=== PATIENT | male | born 1930 | race Caucasian/White ===

== ENCOUNTER 2019-02-08 12:25 | Inpatient (IN) | payer MEDICARE, BC ==
[2019-02-08] MEDS ORDERED: CEFTRIAXONE 1 GM PDS ONE (14:47)
[2019-02-08] MEDS ORDERED: CEFAZOLIN SODIUM 1 GM PDS ONE ×2 (14:49→21:00)
[2019-02-08] MEDS: FUROSEMIDE 20mg SOL IV SCH ×2 (14:57→18:59)
[2019-02-08] MEDS: CEFAZOLIN SODIUM 1 GM PDS 1 GM in SODIUM CHLORIDE 0.9% 50 ML 50 ML IV SCH ×2 (14:59→21:17)
[2019-02-08] MEDS ORDERED: ACETAMINOPHEN 500 MG 500 MG TAB PO PRN (17:33)
[2019-02-08] MEDS ORDERED: ALBUTEROL HFA 60 PUFF/INHALER INH PRN (17:33)
[2019-02-08] MEDS: ALBUTEROL/IPRATROPIUM 1 VIAL SOL INH PRN (18:50)
[2019-02-08] MEDS ORDERED: SODIUM CHLORIDE 0.9% 50 ML 50 ML IV ONE (21:01)
[2019-02-08] MEDS: WARFARIN SODIUM 2.5 MG TAB PO SCH (21:13)
[2019-02-08] MEDS: CARVEDILOL 12.5 MG TAB PO SCH (21:17)
[2019-02-09] MEDS ORDERED: CEFAZOLIN SODIUM 1 GM PDS ONE ×3 (04:28→16:09)
[2019-02-09] MEDS ORDERED: SODIUM CHLORIDE 0.9% 50 ML 50 ML IV ONE ×3 (04:28→16:10)
[2019-02-09] MEDS: CEFAZOLIN SODIUM 1 GM PDS 1 GM in SODIUM CHLORIDE 0.9% 50 ML 50 ML IV SCH ×3 (05:50→20:50)
[2019-02-09 07:17] LABS: CALCIUM 8.4 mg/dl (8.5-10.1); CREATININE 1.08 mg/dl (0.80-1.30)
[2019-02-09 07:20] LABS: BASOPHILS % (AUTO) 1 % (0-3); EOSINOPHILS % (AUTO) 3 % (0-9); HEMATOCRIT 47 % (39-53); HEMOGLOBIN 14.1 gm/dl (13.5-17.7); LYMPHOCYTES % (AUTO) 32.6 % (10-50); MEAN CORPUSCULAR HEMOGLOBIN 28.6 pg (27.0-32.0); MEAN CORPUSCULAR HGB CONC 29.9 gm/dl (32.0-36.0); MEAN CORPUSCULAR VOLUME 96 fL (80-100); MONOCYTES % (AUTO) 11.2 % (0-12); NEUTROPHILS % (AUTO) 52.1 % (37-80)
[2019-02-09 07:30] LABS: CARBON DIOXIDE 33.7 mEq/L (21-32)
[2019-02-09 07:35] LABS: INR 2.36 (0.87-1.13)
[2019-02-09] MEDS: FUROSEMIDE 20mg SOL IV SCH ×2 (08:01→12:07)
[2019-02-09] MEDS: SODIUM CHLORIDE 0.9% FLUSH 10 ML SOL IV PRN ×2 (08:03→13:34)
[2019-02-09] MEDS: ALBUTEROL/IPRATROPIUM 1 VIAL SOL INH PRN (08:20)
[2019-02-09] MEDS: CARVEDILOL 12.5 MG TAB PO SCH ×2 (08:31→20:10)
[2019-02-09] MEDS: LISINOPRIL 5 MG TAB PO SCH (08:31)
[2019-02-09] MEDS ORDERED: FLUTICASONE/SALMETEROL 250/50 1 PUFF DSK INH PRN (09:00)
[2019-02-09] MEDS: PREDNISONE 20 MG TAB PO SCH (10:17)
[2019-02-09] MEDS: ALBUTEROL/IPRATROPIUM 1 VIAL SOL INH SCH ×2 (12:06→18:20)
[2019-02-09] MEDS: WARFARIN SODIUM 2.5 MG TAB PO SCH (20:10)
[2019-02-10] MEDS: ALBUTEROL/IPRATROPIUM 1 VIAL SOL INH SCH ×4 (00:15→18:07)
[2019-02-10] MEDS ORDERED: CEFAZOLIN SODIUM 1 GM PDS ONE ×3 (06:00→21:23)
[2019-02-10] MEDS ORDERED: SODIUM CHLORIDE 0.9% 50 ML 50 ML IV ONE ×3 (06:01→21:23)
[2019-02-10] MEDS: CEFAZOLIN SODIUM 1 GM PDS 1 GM in SODIUM CHLORIDE 0.9% 50 ML 50 ML IV SCH ×3 (06:09→21:20)
[2019-02-10 07:07] LABS: CALCIUM 8.4 mg/dl (8.5-10.1); CREATININE 1.01 mg/dl (0.80-1.30)
[2019-02-10 07:12] LABS: CARBON DIOXIDE 34.1 mEq/L (21-32)
[2019-02-10 07:21] LABS: BASOPHILS % (AUTO) 1 % (0-3); EOSINOPHILS % (AUTO) 0 % (0-9); HEMATOCRIT 46 % (39-53); HEMOGLOBIN 13.9 gm/dl (13.5-17.7); LYMPHOCYTES % (AUTO) 22.7 % (10-50); MEAN CORPUSCULAR HEMOGLOBIN 28.8 pg (27.0-32.0); MEAN CORPUSCULAR HGB CONC 30.3 gm/dl (32.0-36.0); MEAN CORPUSCULAR VOLUME 95 fL (80-100); MONOCYTES % (AUTO) 9.4 % (0-12)
[2019-02-10 07:35] LABS: INR 2.41 (0.87-1.13)
[2019-02-10] MEDS: FUROSEMIDE 20mg SOL IV SCH ×2 (08:11→12:03)
[2019-02-10] MEDS: PREDNISONE 20 MG TAB PO SCH (09:43)
[2019-02-10] MEDS: LISINOPRIL 5 MG TAB PO SCH (09:43)
[2019-02-10] MEDS: CARVEDILOL 12.5 MG TAB PO SCH ×2 (09:44→20:33)
[2019-02-10] MEDS: SODIUM CHLORIDE 0.9% FLUSH 10 ML SOL IV PRN (12:04)
[2019-02-10] MEDS ORDERED: WARFARIN SODIUM 5 MG TAB PO SCH (21:00)
[2019-02-11] MEDS: ALBUTEROL/IPRATROPIUM 1 VIAL SOL INH SCH ×3 (00:27→12:05)
[2019-02-11] MEDS ORDERED: SODIUM CHLORIDE 0.9% 50 ML 50 ML IV ONE (05:37)
[2019-02-11] MEDS ORDERED: CEFAZOLIN SODIUM 1 GM PDS ONE (05:37)
[2019-02-11] MEDS: CEFAZOLIN SODIUM 1 GM PDS 1 GM in SODIUM CHLORIDE 0.9% 50 ML 50 ML IV SCH (05:43)
[2019-02-11] MEDS: SODIUM CHLORIDE 0.9% FLUSH 10 ML SOL IV PRN ×3 (05:50→11:59)
[2019-02-11 07:06] LABS: BASOPHILS % (AUTO) 1 % (0-3); EOSINOPHILS % (AUTO) 0 % (0-9); HEMATOCRIT 48 % (39-53); HEMOGLOBIN 14.6 gm/dl (13.5-17.7); LYMPHOCYTES % (AUTO) 22.6 % (10-50); MEAN CORPUSCULAR HGB CONC 30.4 gm/dl (32.0-36.0); MEAN CORPUSCULAR VOLUME 95 fL (80-100); MONOCYTES % (AUTO) 8.3 % (0-12); NEUTROPHILS % (AUTO) 68.3 % (37-80)
[2019-02-11 07:17] LABS: CALCIUM 8.3 mg/dl (8.5-10.1); CREATININE 1.03 mg/dl (0.80-1.30)
[2019-02-11 07:24] LABS: CARBON DIOXIDE 32.5 mEq/L (21-32)
[2019-02-11 07:32] LABS: INR 2.24 (0.87-1.13)
[2019-02-11] MEDS: FUROSEMIDE 20mg SOL IV SCH ×2 (07:58→11:59)
[2019-02-11 08:16] VITALS: BP 159/89; TEMP 97.6
[2019-02-11] MEDS: LISINOPRIL 5 MG TAB PO SCH (09:05)
[2019-02-11] MEDS: PREDNISONE 20 MG TAB PO SCH (09:05)
[2019-02-11] MEDS: CARVEDILOL 12.5 MG TAB PO SCH (09:05)
[2019-02-11 12:18] VITALS: PULSE 71; RESP 26; O2SAT 94
== END 2019-02-11 13:07 | DRG 603 ==
LOC: ACUTE CARE 12:35
PROVIDERS: ADMIT Family Medicine; ATTEND Family Medicine
PROC: F01L0FZ Muscle Performance Assessment of Musculoskeletal System - Lower Back / Lower Extremity using Assistive, Adaptive, Supportive or Protective Equipment (ICD-10-PCS; principal; 2019-02-09)
PROC: F02Z0FZ Bathing/Showering Assessment using Assistive, Adaptive, Supportive or Protective Equipment (ICD-10-PCS; 2019-02-09)
PROC: F02Z3FZ Grooming/Personal Hygiene Assessment using Assistive, Adaptive, Supportive or Protective Equipment (ICD-10-PCS; 2019-02-09)
DX: L03.116 Cellulitis of left lower limb (principal); L97.829 Non-pressure chronic ulcer of other part of left lower leg with unspecified severity; L97.819 Non-pressure chronic ulcer of other part of right lower leg with unspecified severity; L03.115 Cellulitis of right lower limb; I50.9 Heart failure, unspecified; J44.9 Chronic obstructive pulmonary disease, unspecified; I87.303 Chronic venous hypertension (idiopathic) without complications of bilateral lower extremity; E11.9 Type 2 diabetes mellitus without complications; R06.02 Shortness of breath
CPT/HCPCS: 36415; 80048; 85025; 85610; 94150; 94640; 94664; 94760; 97597; 99231; J0690; J0696; J1940; A6232; A6446; A9270-GY